=== PATIENT | male | born 1965 | race Caucasian/White ===

== ENCOUNTER 2021-08-27 14:09 | Day surgery (SDC) | payer BC ==
[~2021-08-27] VITALS: Ht 177.8 cm; Wt 100.9 kg
[2021-08-27] VITALS (8 sets, daily range): BP systolic 111–141; BP diastolic 63–87; PULSE 86–93; TEMP 99–100.5
--- NOTE | 2021-08-27 13:37 | NUR ---
Notified Jovany Koroma CRNA that patient is reporting 6/10 pain to right lower quadarent and nausea. Orders recieved.
[2021-08-27] MEDS ORDERED: PRAVACHOL 40MG40 MG PO (14:20)
[2021-08-27] MEDS ORDERED: ZESTORETIC 12.51 TAB PO (14:20)
--- NOTE | 2021-08-27 14:43 | NUR ---
1107: REPORT RECIEVED FROM ROSY GEE AT [facility]. 1213: REPORT RECIEVED FROM EMS
[2021-08-27] MEDS ORDERED: AMOXICILLIN 8751 TAB PO ×2 (17:14)
[2021-08-27] MEDS ORDERED: NORCO 325 MG-51 TAB PO ×2 (17:14)
[2021-08-27] MEDS ORDERED: MOTRIN 600600 MG/TAB PO ×2 (17:14)
--- NOTE | 2021-08-27 17:50 | NUR ---
PATIENT ADMITED INTO ROOM 322 POST OP RUPTURED APPY. ABD LAP SITES X2 ARE WELL APPROXIMATED WITH GLUED CLOSURE. STEVAN DRAIN TO COMPRESSION WITH SMALL AMOUNTS OF BLOODY DRAINAGE NOTED. UPON ARRIVAL, PATIENT AMBULATED TO BATHROOM AND VOIDED. STAND BY ASSIST WITH SLIGHTLY WOBBLY GAIT. IV FLUIDS INFUSING INTO RIGHT WRIST IV. BS IN PACU WAS 171. PATIENT ASKING ABOUT EATING, MESSAGED FOR DIET ORDER, AWAITING RETURN CALL. HEAD TO TOE ASSESSMENT COMPLETE. NOTED TEMP OF 100.5 WHICH IS DOWN FROM ADMISSION TEMP OF 103. ALL OTHER VSS. NO C/O PAIN OR NAUSEA. FAMILY AT BEDSIDE. ORIENTED TO ROOM. CALL LIGHT IN REACH.
--- NOTE | 2021-08-27 19:45 | NUR ---
Patient and girlfriend state they are suppose to be discharged tonight. Received in report patient would be staying over night for antibiotics. Order clarified with Dr Schilling via phone-states okay to DC home tonight if discharge criteria met. Discussed with patient and girlfriend and they are requesting DC. Will discharge when criteria met.
--- NOTE | 2021-08-27 20:30 | NUR ---
Discharge criteria met. VS stable-noted to have an oral temp of 99.0. Has voided and tolerated PO. Dressing to STEVAN drain CDI. Emptied 60mls serasanguineous fluid. Lap sites [id number] if one underneath STEVAN drain dressing-edges well approximated. 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 Schilling for home norco pack. Discharge instructions given both verbal and handwritten. Discussed f/u appt for STEVAN drain removal, S/S of infection, activity and when to return to dr office. Instruction given to both patient and girlfriend on emptying STEVAN drain. Denies questions/concerns. Escorted off floor via wheelchair by TANYA Smith in stable condition.
[2021-08-28] MEDS ORDERED: NORCO 325 MG-51 TAB PO (10:29)
[2021-08-28] MEDS ORDERED: AMOXICILLIN 8751 TAB PO (10:29)
[2021-08-28] MEDS ORDERED: MOTRIN 600600 MG/TAB PO (10:29)
== END 2021-08-27 20:55 | disposition home or self-care (01) ==
LOC: SDCO 14:09 → SURG 18:03 → SDCO 20:55
DX: K35.891 Other acute appendicitis without perforation, with gangrene (principal); F17.200 Nicotine dependence, unspecified, uncomplicated; F17.220 Nicotine dependence, chewing tobacco, uncomplicated
CPT/HCPCS: OP; J0690; J1100; J1885; J2405; J2704; J3010; J7030